=== PATIENT | female | born 1975 | race Caucasian/White ===

== ENCOUNTER 2025-07-13 07:46 | Outpatient (OUT) | payer OTHER, SELFPAY ==
--- OUTSIDE RECORDS SUMMARY | 2025-07-13 07:54 | XMS_ITS | Clinical Summary ---
Author Organization [facility] Address [address] 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 Operator Name Role Phone Unavailable Primary Care Provider Unavailabl e Social History Tobacco UseTypesPacks/DayYears UsedDateSmoking Tobacco: Never Assessed CommentsUnknownSex and Gender InformationValueDate RecordedSex Assigned at Not on fileLegal YnzGududj55/15/2023 6:51 PM EDTGender IdentityNot on fileSexual OrientationNot on file Last Filed Vital Signs Vital SignReadingTime TakenCommentsBlood Rgrggtmq786/7603 12:00 PM EDT Pulse--Temperature--Respiratory Rate--Oxygen Saturation--Inhaled Oxygen Concentration--Xljfvj81.3 kg (210 lb)11/05/2019 12:00 PM XAVBlgujz545.2 cm (5' 7 )11/05/2019 12:00 PM EDTBody Mass Index32.8911/05/2019 12:00 PM EDT Plan of Treatment Not on file
--- OUTSIDE RECORDS SUMMARY | 2025-07-13 07:54 | XMS_ITS | Patient Health Record ---
Author Organization [facility] in [place] Address [address] [place] [address] Care Team Providers Care Db2 Developer Name Role Phone London Herrera Primary Care Provider Allergies Allergen (clinical drug ingredient) Drug/Non Drug Allergy documented on EMR Reaction Allergy Type Onset Date Status PenicillinUnknownDrug AllergyActive Results Component Value Reference Range Notes LIPID PROFILE Reviewed date:04/12/2025 08:42:57 PM Interpretation: Performing Lab: Notes/Report: [facility] , Triglycerides 125 <=150 mg/dL Srsftvkjoby116<=200 mg/dLHDL Afyfabcjcav7216-09 mg/dL <40 mg/dl - HIGH CARDIOVASCULAR RISK > or =60 mg/dl - LOW CARDIOVASCULAR RISK LDL Cholesterol Ilqkhtwakd781.0 160-189 mg/dl HIGH >190 mg/dl VERY HIGH 100-129 mg/dl NEAR OR ABOVE OPTIMAL <100 mg/dl OPTIMAL 130-159 mg/dl BORDERLINE HIGH VLDL HYFQNSBULSY06.0Chol HDL Ratio3.7 4.4 - 7.1 AVERAGE RISK 3.3 - 4.4 LOW RISK 7.1 - 11.0 MODERATE RISK >11.0 HIGH RISK Performing Lab:see noteML - [facility] LBPROF 14(COMP METB) Reviewed date:04/12/2025 08:42:57 PM Interpretation: Performing Lab: Notes/Report: [facility] ,Yuunrq377661-525 mmol/LPotassium3.93.5-5.1 mmol/OPnmbocin79260-537 mmol/LCarbon Hfuovpz29.521.0-32.0 mmol/LAnion Gap15.5Toazyhs51379-794 mg/dLBlood Urea Oavnraqj50.07.0-18.0 mg/dLCreatinine0.750.55-1.02 mg/dLEstimated GFR ( Monique>60>=60 mL/min/1.73m 2Estimated GFR (Non- Gladys>60>=60 mL/min/1.73m 2BUN Creatinine Ratio16.6Pydobrr3.68.5-10.1 mg/dLBilirubin Total0.80.2-1.0 mg/dL Aspartate Amino Vykvqoxgpfm5241-80 U/LAlanine Akruzemggkpngocc4423-65 U/L Alkaline Zqcgpsefwcu6763-517 U/LTotal Protein8.46.4-8.2 g/dLAlbumin Level4.33.4- 5.0 g/dLGlobulin4.1Albumin Globulin Ratio1.0Performing Lab:see noteML - [facility] LBTSH Reviewed date:04/12/2025 08:42:57 PM Interpretation: Performing Lab: Notes/Report: [facility] ,Thyroid Stimulating Hormone2.7070.358-3.740 uIU/mLPerforming Lab:see noteML - [facility] LBCBC AUTO DIFF Reviewed date:04/12/2025 08:42:57 PM Interpretation: Performing Lab: Notes/Report: [facility] ,White Blood Count7.44.0-11.0 10 3/uLRed Blood Count4.344.20-5.40 10 6/uL Cfgotrgsha85.312.0-16.0 g/fNZrfnfdnrfw52.236.0-48.0 %Mean Corpuscular Sckian78.9 81.0-99.0 fLMean Corpuscular Bmszichqzk92.926.7-34.0 pgMean Corpuscular HGB Conc 34.729.9-35.2 g/dLRed Cell Distribution Width12.511.0-15.0 %Platelet Aujqz446 150-450 10 3/uLMean Platelet Volume8.99.5-13.5 fLNeutrophils Percent Auto39.9 43.0-75.0 %Lymphocytes Percent Auto48.020.5-60.0 %Monocytes Percent Auto5.11.7- 12.0 %Eosinophils Percent Auto6.20.9-7.0 %Basophils Percent Auto0.70.2-2.0 % Immature Granulocytes Pct Auto0.10.0-0.5 %Neutrophils Absolute Auto2.91.4-6.5 10 3/uLLymphocytes Absolute Auto3.61.2-3.8 10 3/uLMonocytes Absolute Auto0.40.3-0.8 10 3/uLEosinophils Absolute Auto0.50.0-0.7 10 3/uLBasophils Absolute Auto0.10.0- 0.1 10 3/uLImmature Granulocytes Abs Auto0.010.00-0.03 10 3/uLPerforming Lab:see noteML - [facility] Reason For Referral No Information Medications Medication SIG (Take, Route, Frequency, Duration) Notes Start Date End Date Status Triamcinolone Acetonide 0.1 % 1 applicat ion Externally Twice a day; Duration: 3ActiveSimvastatin 20 MG1 tablet in the evening Orally Once a day; Duration: 30 days5Active Social History Tobacco Use: Social History Observation Description Date Details (start date - stop date) Never Smoker NA - NA Tobacco Use/Smoking Question Answer Notes Patient is a nonsmoker Alcohol Screen (Audit-C) Question Answer Notes Did you have a drink containing alcohol in the p ast year? Yes How often did you have 6 or more drinks on one occasion in the past year?Two to three times per week (3 points)How many drinks did you have on a typical day when you were drinking in the past year?1 or 2 drinks (0 point)How often did you have a drink containing alcohol in the past year?Weekly (3 points)Points6 InterpretationPositive Problems Problem Type SNOMED Code ICD Code Onset Dates Problem Status W/U Status Risk Notes Problem Hyperlipidemia (80651150) Hyperlipidemia (E78.5) ActiveconfirmedProblemContact dermatitis (83965942)Contact dermatitis (L25.9) Activeconfirmed Encounters Encounter Location Date Provider Diagnosis [facility] [address] [place] [address] 04/12/2025 London Hoy Hyperlipidemia E78.5 Assessments Encounter Date Diagnosis (ICD Code) Assessment Notes Treatment Notes Treatment Clinical Notes Section Notes 04/12/2025 Hyperlipidemia (ICD-10 - E78.5) Plan Of Treatment Pending Test Test Name Order Date LIPID PROFILE 04/12/2025 LIVER PROFILE 04/11/2024 LIVER PROFILE 04/12/2025 Lipid Panel 04/11/2024 Insurance Providers Payer Name Payer Address Payer Phone Subscriber Number Group Number Insured Name Patient Relationship to Insured Coverage Start Date Coverage End Date [facility] [address] [place], [place] [id number] Kalra Alba Self - patient is the insured Medications Administered Medication Instructions Date of Administration Dosage Notes Kenalog-40 0 mg80 mg Medical (General) History Medical History History ICD Code Eczema L30.9 Degeneration of lumbar or 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 Duggan 09/30/2019
[2025-07-13 08:43] LABS: Alanine Aminotransferase 26 U/L (14-59); Albumin Globulin Ratio 1.1; Albumin Level 3.8 g/dL (3.4-5.0); Alkaline Phosphatase 89 U/L (46-116); Aspartate Amino Transferase 18 U/L (15-37); Cholesterol 232 mg/dL (<=200); Globulin 3.4 g/dL; HDL Cholesterol 66 mg/dL (40-60); Total Protein 7.2 g/dL (6.4-8.2); Triglycerides 72 mg/dL (<=150); VLDL CHOLESTEROL 14.4 mg/dL
== END 2025-07-13 07:47 | disposition home or self-care (01) ==
LOC: LAB 07:51
PROVIDERS: PCP Family Medicine; Visit Provider Family Medicine
DX: E78.5 Hyperlipidemia, unspecified (principal)
CPT/HCPCS: 36415; 80061; 80076